=== PATIENT | male | born 1970 | race Caucasian/White ===

== ENCOUNTER 2023-06-20 00:14 | Emergency (ER) | payer BC ==
[~2023-06-20] VITALS: Ht 185.4 cm; Wt 106.6 kg
[2023-06-20 00:23] VITALS: BP_SYST 103; PULSE 99; RESP 16; TEMP 98.7; O2SAT 97
[2023-06-20 00:42] LABS: BASOPHILS % (AUTO) 0.1 % (0.0-2.0); EOSINOPHILS % (AUTO) 0.3 % (0.0-4.0); HEMATOCRIT 47.5 % (36-54); HEMOGLOBIN 16.6 g/dL (14.0-18.0); LYMPHOCYTES # (AUTO) 0.3 K/uL (1.0-5.5); LYMPHOCYTES % (AUTO) 4.1 % (20.5-51.5); MEAN CORPUSCULAR HEMOGLOBIN 29 pg (27-31); MEAN CORPUSCULAR HGB CONC 35 % (32-36); MEAN CORPUSCULAR VOLUME 83 fL (79.0-98.0); MONOCYTES # (AUTO) 0.5 K/uL (0.0-1.0); MONOCYTES % (AUTO) 6.5 % (1.7-9.3); NEUTROPHILS # (AUTO) 6.4 K/uL (1.8-7.7); PLATELET COUNT (AUTO) 180 K/uL (130-430); RED BLOOD CELL COUNT(AUTO) 5.74 MIL/uL (4.2-6.2); RED CELL DISTRIBUTION WIDTH 13.4 % (9.0-15.0); WHITE BLOOD COUNT (AUTO) 7.2 K/uL (4.8-10.8)
[2023-06-20] MEDS: NACL 0.9% 1,000 ML IV ONE (00:51)
[2023-06-20] MEDS: ONDANSETRON HCL 4 MG/2 ML VIAL IVP ONE (00:56)
[2023-06-20 01:02] LABS: CALCIUM 8.9 mg/dL (8.4-11.0); CREATININE 1.11 mg/dL (0.55-1.30); POTASSIUM 3.7 mmol/L (3.5-5.1)
[2023-06-20] MEDS ORDERED: ONDA-8 TL (01:29)
[2023-06-20 02:19] VITALS: BP_SYST 116; PULSE 91; RESP 20; TEMP 98; O2SAT 97
== END 2023-06-20 02:19 | disposition home or self-care (01) ==
LOC: SED 00:14
DX: K52.9 Noninfective gastroenteritis and colitis, unspecified (principal); R53.1 Weakness; E86.0 Dehydration
CPT/HCPCS: 99283; 96374; 96361; 80048; 85025; 36415; J2405; J7030

== ENCOUNTER 2024-02-05 10:39 | Emergency (ER) | payer BC ==
[~2024-02-05] VITALS: Ht 188 cm; Wt 103.0 kg
[~2024-02-05 10:39] MED LIST: CLIN-142 PO; LEVO-62 PO; ONDA-8 TL
[2024-02-05 10:47] VITALS: BP_SYST 126; PULSE 102; RESP 17; TEMP 97.2; O2SAT 98
[2024-02-05 11:50] LABS: BASOPHILS % (AUTO) 0.4 % (0.0-2.0); EOSINOPHILS # (AUTO) 0.1 K/uL (0.0-0.4); EOSINOPHILS % (AUTO) 0.6 % (0.0-4.0); HEMATOCRIT 49.9 % (36-54); HEMOGLOBIN 17.3 g/dL (14.0-18.0); LYMPHOCYTES # (AUTO) 1.7 K/uL (1.0-5.5); LYMPHOCYTES % (AUTO) 16.9 % (20.5-51.5); MEAN CORPUSCULAR HEMOGLOBIN 29 pg (27-31); MEAN CORPUSCULAR HGB CONC 35 % (32-36); MEAN CORPUSCULAR VOLUME 84 fL (79.0-98.0); MONOCYTES # (AUTO) 1.1 K/uL (0.0-1.0); MONOCYTES % (AUTO) 10.5 % (1.7-9.3); NEUTROPHILS # (AUTO) 7.4 K/uL (1.8-7.7); NEUTROPHILS % (AUTO) 71.6 % (40.0-70.0); PLATELET COUNT (AUTO) 289 K/uL (130-430); RED BLOOD CELL COUNT(AUTO) 5.98 MIL/uL (4.2-6.2); RED CELL DISTRIBUTION WIDTH 13.3 % (9.0-15.0); WHITE BLOOD COUNT (AUTO) 10.3 K/uL (4.8-10.8)
[2024-02-05 12:19] LABS: INR 1.1 (0.80-1.20); PROTHROMBIN TIME 11.5 SECS (9.5-12.5)
[2024-02-05 12:22] LABS: CALCIUM 9.6 mg/dL (8.4-11.0); CREATININE 1.2 mg/dL (0.55-1.30); POTASSIUM 4.3 mmol/L (3.5-5.1)
[2024-02-05 12:37] LABS: ERYTHROCYTE SEDIMENTATION RATE 4 MM/HR (0-15)
[2024-02-05] MEDS ORDERED: ALPR0.5T PO (12:56)
[2024-02-05 13:03] VITALS: BP_SYST 126; PULSE 102; RESP 17; TEMP 97.2; O2SAT 98
== END 2024-02-05 13:00 | disposition home or self-care (01) ==
LOC: SED 10:39
DX: H93.13 Tinnitus, bilateral (principal); Z88.1 Allergy status to other antibiotic agents; Z88.8 Allergy status to other drugs, medicaments and biological substances; Z79.899 Other long term (current) drug therapy; Z79.2 Long term (current) use of antibiotics; R51.9 Headache, unspecified
CPT/HCPCS: 99284; 70450; 80048; 85025; 85610; 85651; 85730; 36415; 82397; G0481